=== PATIENT | male | born 1980 | race African-American/Black ===

== ENCOUNTER 2022-08-23 16:29 | Emergency (ER) | payer SELFPAY ==
[~2022-08-23] VITALS: Ht 180.3 cm; Wt 83.6 kg
[2022-08-23] MEDS ORDERED: CEFTRIAXONE 1 GM VIAL IM ONE (18:45)
[2022-08-23] MEDS ORDERED: CEFTRIAXONE 1 GM VIAL ONE (18:49)
[2022-08-23] MEDS ORDERED: CEPHALEXIN500 MG PO (19:03)
[2022-08-23] MEDS ORDERED: IBUPROFEN600 MG PO (20:02)
== END 2022-08-23 20:15 | disposition home or self-care (01) ==
LOC: FSED 16:40
DX: L03.113 Cellulitis of right upper limb (principal); M79.89 Other specified soft tissue disorders
CPT/HCPCS: 73090; 80053; 85025; 85610; 93971 ×2; 99284; J0696

== ENCOUNTER 2024-08-29 20:52 | Emergency (ER) | payer SELFPAY ==
[~2024-08-29] VITALS: Ht 180.3 cm; Wt 81.2 kg
[~2024-08-29 20:52] MED LIST: CEPHALEXIN500 MG PO; IBUPROFEN600 MG PO
[2024-08-29 21:05] VITALS: PULSE 63; RESP 20; TEMP 98.2
[2024-08-29] MEDS ORDERED: CEPHALEXIN500 MG PO (21:07)
[2024-08-29] MEDS ORDERED: IBUPROFEN600 MG PO (21:07)
[2024-08-29 21:36] VITALS: BP 137/94; O2SAT 99
== END 2024-08-29 21:37 | disposition home or self-care (01) ==
LOC: FSED 20:59
DX: S61.210A Laceration without foreign body of right index finger without damage to nail, initial encounter (principal); W26.0XXA Contact with knife, initial encounter; Y93.G3 Activity, cooking and baking; Y92.89 Other specified places as the place of occurrence of the external cause
CPT/HCPCS: 99284

== ENCOUNTER 2024-09-05 17:25 | Emergency (ER) | payer SELFPAY ==
[~2024-09-05] VITALS: Ht 180.3 cm; Wt 81.6 kg
[2024-09-05] MEDS: ONDANSETRON HCL INJ 2MG/ML 2ML 2 MG/ML VIAL IV STA (18:07)
[2024-09-05] MEDS: KETOROLAC TROMETHAMINE 30 MG/ML VIAL IV STA (18:07)
[2024-09-05] MEDS: SODIUM CHLORIDE 0.9% 1000ML 1,000 ML IV ONE ×2 (18:08→19:58)
[2024-09-05 18:33] LABS: BASOPHILS % 0.2 % (0.0-1.0); HEMATOCRIT 39.3 % (38.2-49.6); HEMOGLOBIN 13.9 g/dL (14.0-18.0); LYMPHOCYTES # (AUTO) 0.9 (1.0-3.2); LYMPHOCYTES % 14.5 % (18.0-39.1); MEAN CORPUSCULAR HEMOGLOBIN 32.6 pg (28-32); MEAN CORPUSCULAR HGB CONC 35.4 g/dL (31-35); MEAN CORPUSCULAR VOLUME 92.3 fL (81-99); MONOCYTES # (AUTO) 0.4 (0.2-0.8); MONOCYTES % 5.8 % (4.4-11.3); NEUTROPHILS # (AUTO) 5.1 (2.1-6.9); NEUTROPHILS % 79.2 % (38.7-80.0); PLATELET COUNT 159 x10e3/uL (140-360); RED BLOOD COUNT 4.26 x10e6/uL (4.3-5.7); RED CELL DISTRIBUTION WIDTH 12.4 % (11.7-14.4); WHITE BLOOD COUNT 6.43 x10e3/uL (4.8-10.8)
[2024-09-05 18:55] LABS: ANION GAP 17.1 mmol/L (8-16); CALCIUM 9.1 mg/dL (8.4-10.2); CREATININE, SERUM 1.3 mg/dL (0.72-1.25); POTASSIUM 4.1 mmol/L (3.5-5.1)
[2024-09-05 19:09] LABS: BILIRUBIN,DIRECT 0.3 mg/dL (0.0-0.5); BILIRUBIN,TOTAL 0.8 mg/dL (0.2-1.2); TOTAL PROTEIN 6.7 g/dL (6.5-8.1)
[2024-09-05 20:31] VITALS: PULSE 58; RESP 16; TEMP 98.2
[2024-09-05] MEDS ORDERED: ONDANSETRON ODT4 MG PO (20:33)
[2024-09-05 20:37] VITALS: BP 134/85; PULSE 58; RESP 16; TEMP 98.2; O2SAT 99
== END 2024-09-05 20:44 | disposition home or self-care (01) ==
LOC: FSED 17:36
DX: R11.2 Nausea with vomiting, unspecified (principal); K52.9 Noninfective gastroenteritis and colitis, unspecified; R10.9 Unspecified abdominal pain; E86.0 Dehydration; E86.1 Hypovolemia; Z11.52 Encounter for screening for COVID-19
CPT/HCPCS: 0223U; 36415; 74176; 80048; 80076; 83518; 83690; 85025; 85045; 87400; 99284; J1885; J2405; J7030